=== PATIENT | male | born 1950 | race Two or more races ===

== ENCOUNTER 2024-08-17 14:21 | Emergency (ER) | payer OTHER ==
[~2024-08-17] VITALS: Ht 180.3 cm; Wt 107.9 kg
--- NOTE | 2024-08-17 16:30 | ED.PDOC ---
Back pain HPI HPI Comments 74-year-old male presents with a chief complaint of back pain x 3 days with associated rash. Patient states that he is having back pain to his lower lumbar region for the past 3 days. Patient mentions that he went to urgent care to be seen for it and was prescribed Ibuprofen and Flexeril. Patient reports that the medication helped him but only for about 6 hours then the pain returned. Patient states that he has not been able to sleep. Patient denies any injuries, falls, or heavy lifting recently. Patient also states that he developed a rash over his body. Patient states that the rash is not itchy or painful. Patient was prescribed a steroid cream by urgent care which he states has not helped. Chief Complaint: Back Pain Time Seen by MD: 16:20 Primary Care Provider: ALTA Reviewed Notes: Nurses Notes, Medications, Allergies Allergies: Coded Allergies: NO KNOWN ALLERGIES (Unverified , 08/17/24) Information Source: Patient Mode of Arrival: Ambulatory Timing: Days Duration: Since onset Location of Back pain: (B) Lumbar Severity: Moderate Prehospital treatment: None Quality: Aching Onset: Spontaneous History of: None Past Medical History PAST MEDICAL HISTORY: Denies Surgical History: Denies all surgeries Family History Family History: Reviewed,noncontributory to illness Social History Smoker: Non-Smoker Alcohol: Denies ETOH Use Drugs: Denies Drug Use Lives In: Home Constitutional: denies: chills, diaphoresis, fatigue, fever, malaise, sweats, weakness, others EENTM: denies: blurred vision, double vision, ear bleeding, ear discharge, ear drainage, ear pain, ear ringing, eye pain, eye redness, hearing loss, mouth pain, mouth swelling, nasal discharge, nose bleeding, nose congestion, nose pain, photophobia, tearing, throat pain, throat swelling, voice changes, others Respiratory: denies: cough, hemoptysis, orthopnea, SOB at rest, shortness of breath, SOB with excertion, stridor, wheezing, others Cardiovascular: denies: chest pain, dizzy spells, diaphoresis, Dyspnea on exertion, edema, irregular heart beat, left arm pain, lightheadedness, palpitations, PND, syncope, others Gastrointestinal: denies: abdomen distended, abdominal pain, blood streaked bowels, constipated, diarrhea, dysphagia, difficulty swallowing, hematemesis, melena, nausea, poor appetite, poor fluid intake, rectal bleeding, rectal pain, vomiting, others Genitourinary: denies: burning, dysuria, flank pain, frequency, hematuria, incontinence, penile discharge, penile sore, pain, testicle pain, testicle swelling, urgency, others Neurological: denies: dizziness, fainting, headache, left sided numbness, left sided weakness, numbness, paresthesia, pre-existing deficit, right sided numbness, right sided weakness, seizure, speech problems, tingling, tremors, weakness, others Musculoskeletal: reports: back pain; denies: gout, joint pain, joint swelling, muscle pain, muscle stiffness, neck pain, others Integumetry: reports: rash; denies: bruises, change in color, change in hair/nails, dryness, laceration, lesions, lumps, wounds, others Allergic/Immunocompromised: denies: Difficulty Healing, Frequent Infections, Hi ves, Itching, others Hematologic/Lymphatic: denies: anemia, blood clots, easy bleeding, easy bruising, swollen glands, others Endocrine: denies: excessive hunger, excessive sweating, excessive thirst, excessive urination, flushing, intolerance to cold, intolerance to heat, unexplained weight gain, unexplained weight loss, others Psychiatric: denies: anxiety, bipolar disorder, depression, hopeless, panic disorder, schizophrenia, sleepless, suicidal, others All Other Systems: Reviewed and Negative Physical Exam General Appearance: No Apparent Distress, Normal HEENT: Normal ENT Inspection, Pharynx Normal, TMs Normal Neck: Full Range of Motion, Non-Tender, Normal, Normal Inspection Respiratory: Chest Non-Tender, Lungs Clear, No Accessory Muscle Use, No Respiratory Distress, Normal Breath Sounds Cardiovascular: No Edema, No JVD, No Murmur, No Gallop, Normal Peripheral Pulses, Regular Rate/Rhythm Breast Exam: Deferred Gastrointestinal: No Organomegaly, Non Tender, No Pulsatile Mass, Normal Bowel Sounds, Soft Genitalia: Deferred Pelvic: Deferred Rectal: Deferred Extremities: No calf tenderness, Normal capillary refill, Normal inspection, Normal range of motion, No pedal edema, Tender (TENDERNESS TO LUMBAR SPINE) Musculoskeletal : Apperance: Normal Neurologic: Alert, binder caser II-XII nml as Tested, No Motor Deficits, Normal Affect, Normal Mood, No Sensory Deficits Cerebellar Function: Normal Reflexes: Normal Skin: Dry, Normal Color, Warm, Other (PAPILLAR RASH, NONVESICULAR) Lymphatic: No Adenopathy Was a procedure done? Was a procedure done?: No Back Pain Differential Dx Differential Diagnosis: Appendicitis, Bowel Obstruction, Cholelithiasis, Fracture, Musculoskeletal Pain X-Ray, Labs, Meds, VS Vital Signs Date Time Temp Pulse Resp B/P (MAP) Pulse Ox O2 Delivery O2 Flow Rate FiO2 08/17/24 14:40 97.4 68 16 131/73 (92) 97 08/17/24 14:33 67 Lab Test 08/17/24 18:23 08/17/24 16:20 Range/Units White Blood Count 5.4 4.4-10.8 10^3/uL Red Blood Count 4.45 L 4.5-5.90 10^6/uL Hemoglobin 14.6 13.5-17.5 g/dL Hematocrit 41.6 41.0-53.0 % Mean Corpuscular Volume 93.6 80.0-100.0 fL Mean Corpuscular Hemoglobin 32.8 H 28.0-32.0 pg Mean Corpuscular Hemoglobin Concent 35.1 32.0-36.0 g/dL Red Cell Distribution Width 13.6 11.8-14.3 % Platelet Count 128 L 140-450 10^3/uL Mean Platelet Volume 7.2 6.9-10.8 fL Neutrophils (%) (Auto) 59.9 37.0-80.0 % Lymphocytes (%) (Auto) 26.7 10.0-50.0 % Monocytes (%) (Auto) 11.4 0.0-12.0 % Eosinophils (%) (Auto) 1.5 0.0-7.0 % Basophils (%) (Auto) 0.5 0.0-2.0 % Neutrophils # (Auto) 3.2 1.6-8.6 10 ^3/uL Lymphocytes # (Auto) 1.4 0.4-5.4 10 ^3/uL Monocytes # (Auto) 0.6 0-1.3 10 ^3/uL Eosinophils # (Auto) 0.1 0-0.8 10 ^3/uL Basophils # (Auto) 0 0-0.2 10 ^3/uL Nucleated Red Blood Cells 0.2 % Sodium Level 136 136-145 mmol/L Potassium Level 3.6 3.5-5.1 mmol/L Chloride Level 101 98-107 mmol/L Carbon Dioxide Level 25 20-31 mmol/L Anion Gap 10 5-15 Blood Urea Nitrogen 12 9-23 mg/dL Creatinine 0.97 0.700-1.30 mg/dL Glomerular Filtration Rate Calc 82 >90 mL/min BUN/Creatinine Ratio 12.4 10.0-20.0 Serum Glucose 109 H 74-106 mg/dL Calcium Level 9.6 8.7-10.4 mg/dL Total Bilirubin 0.6 0.2-1.0 mg/dL Aspartate Amino Transferase (AST) 96 H 13-40 U/L Alanine Aminotransferase (ALT) 110 H 7-40 U/L Alkaline Phosphatase 75 46-116 U/L Total Protein 7.7 5.7-8.2 g/dL Albumin 4.6 3.2-4.8 g/dL Urine Color Yellow Yellow Urine Clarity Clear Clear Urine pH 5.5 5.0-9.0 Urine Specific [place] 1.023 1.001-1.035 Urine Protein Trace H Negative Urine Ketones Negative Negative Urine Blood 2+ H Negative /uL Urine Nitrite Negative Negative Urine Bilirubin Negative Negative Urine Urobilinogen Normal Negative mg/dL Urine Leukocyte Esterase Negative Negative /uL Urine RBC 1 0 - 3 /hpf Urine Microscopic WBC 1 0-3 /HPF Urine Squamous Epithelial Cells Few <5 /hpf Urine Bacteria None seen None Seen /hpf Urine Mucus Few None Seen Urine Glucose Normal Normal mg/dL X-Ray, Labs, Meds, VS Comment IMAGING: X-RAYS AND CT SCANS WERE REVIEWED AND INTERPRETED BY THIS PROVIDER, ADMITS SHOWS POSSIBLE ACUTE VERSUS CHRONIC APPENDICITIS. LAB RESULTS SHOW NO WHITE COUNT PATIENT HAS NOT NO REBOUND TENDERNESS LESS CONCERNED FOR ACUTE APPENDICITIS VERSUS CHRONIC.. PENDING RADIOLOGY REVIEW. LABORATORY: LABS REVIEWED AND INTERPRETED BY THIS PROVIDER. NO SIGNIFICANT ABNORMALITIES NOTED. PATIENT HAS PRIOR MEDICAL VISITS REVIEWED. MED RECONCILIATION PERFORMED VITAL SIGNS REVIEWED Time of 1ST Reevaluation: 16:50 Reevaluation 1ST: Unchanged Patient Education/Counseling: Diagnosis, Treatment, Prognosis, Need For Follow Up (PATIENT ADVISED TO FOLLOW-UP IN THE EMERGENCY ROOM IN THE NEXT 24 TO 48 HOURS IF SYMPTOMS DO NOT IMPROVE. ADVISED FOLLOW-UP WITH PCP IN THE NEXT 3 TO 5 DAYS. PATIENT VERBALIZED UNDERSTANDING. ) Family Education/Counseling: Diagnosis, Treatment, Prognosis Departure 1 Departure Time of Disposition: 19:18 Impression: Primary Impression: Lumbar radiculopathy Additional Impression: Musculoskeletal pain Disposition: 01 HOME / SELF CARE / HOMELESS Condition: Stable e-Prescriptions Methylprednisolone (Medrol Dosepak) 4 Mg Bennie 4 MG PO UD, #21 TAB UAD Prov: CURT HOLDER 08/17/24 Discharged With: Self Critical Care Note Critical Care Time?: No Stability Stability form required: No Heart Score Heart Score: Heart Score Response (Comments) Value History N/A 0 EKG N/A 0 Age N/A 0 Risk Factors N/A 0 Troponin N/A 0 Total 0 I personally scribed for CURT HOLDER ([email or web address]) on 08/17/24 at 16:30. Electronically submitted by Feliz Romano ([email or web address]). CURT HOLDER Aug 17, 2024 16:30
[2024-08-17 17:02] LABS: Urine Bacteria None Seen /hpf (None Seen)
[2024-08-17 17:22] LABS: Urine Blood 2+ /uL (Negative); Urine Clarity Clear (Clear); Urine Color Yellow (Yellow); Urine Mucus FEW (None Seen); Urine Protein, UAD TRACE (Negative); Urine Specific Gravity 1.023 (1.001-1.035); Urine Squamous Epithelial Cell FEW /hpf (<5); Urine Urobilinogen Normal (Negative); Urine WBC 1 /HPF (0-3); Urine pH 5.5 (5.0-9.0)
--- NOTE | 2024-08-17 17:36 | DVH ---
Procedure: CT CT AB PEL WO CON-NO ORAL OR IV 08/17/2024 04:37 PM Indication: BACK PAIN Comparison Study: None Technique: Axial images were obtained and reformatted in coronal and sagittal planes. All CT scans at this medical facility are performed using dose modulation techniques as appropriate to a performed e xam including the following: Automated exposure control was utilized; adjustment of the MA and/or KV according to patient size; and use of iterative reconstruction technique. CT Dose: CTDI volume is 24. 79 mGy. Dose-length product is 1503.52 mGy*cm FINDINGS: Lower Chest: Unremarkable. Hepatobiliary: Unremarkable. Spleen: Mildly enlarged, 13 cm in length. Pancreas: Unremarkable. Adrenal Glands: Unremarkable. tract: The kidneys are normal in size bilaterally without hydronephrosis or nephrolithiasis. The u rinary bladder is unremarkable. GI tract: The stomach is grossly normal in appearance. No evidence of small bowel obstruction. Scatte red colonic diverticula are noted without evidence of diverticulitis. The appendix is distended measu ring 1.1 cm in caliber without significant mural thickening and no appendicolith. No significant per iappendiceal inflammation. Lymphatics: No mesenteric, retroperitoneal or periportal lymphadenopathy. Vasculature: The abdominal aorta is normal in in caliber. Pelvic Organs: Markedly enlarged prostate, 5.7 cm in transverse with several subcentimeter central zo ne calcifications Bones/soft tissues: No acute abnormality noted. Multilevel degenerative disc disease and posterior fa cet arthropathy of the lumbar spine with evidence of central canal and neural foramina stenosis at L2 -S1 levels which is most prominent at L3-L4 and L4-L5 levels with suggestion of nerve impingement. S mall fat containing umbilical hernia. Fat filled bilateral inguinal canals. There is partial fusion o f the bilateral sacroiliac joints. Other: None. IMPRESSION: 1. Distended appendix measuring 1.1 cm in caliber without periappendiceal inflammation. Chronic appe ndicitis or developing acute appendicitis can not be ruled out. Recommend clinical and biochemical co rrelation. No prior studies available for comparison. 2. Advanced multilevel degenerative disc disease and posterior facet arthropathy of the lumbar spine with evidence of nerve impingement at L3-S1 levels. Further evaluation with MRI could be completed on a nonemergent basis. 3. Partial fusion of the bilateral sacroiliac joints may reflect an element of seronegative spondyloa rthropathy. Recommend clinical and biochemical correlation. 4. Severe prostatic hyperplasia. 5. Mild splenomegaly.
[2024-08-17 18:48] LABS: Basophils # (auto) 0 10 ^3/uL (0-0.2); Basophils % (auto) 0.5 % (0.0-2.0); Eosinophils # (auto) 0.1 10 ^3/uL (0-0.8); Eosinophils % (auto) 1.5 % (0.0-7.0); Hematocrit 41.6 % (41.0-53.0); Hemoglobin 14.6 g/dL (13.5-17.5); Lymphocytes # (auto) 1.4 10 ^3/uL (0.4-5.4); Lymphocytes % (auto) 26.7 % (10.0-50.0); Mean Corpuscular Hemoglobin 32.8 pg (28.0-32.0); Mean Corpuscular Hgb Conc. 35.1 g/dL (32.0-36.0); Mean Corpuscular Volume 93.6 fL (80.0-100.0); Monocytes # (auto) 0.6 10 ^3/uL (0-1.3); Monocytes % (auto) 11.4 % (0.0-12.0); Neutrophils # (auto) 3.2 10 ^3/uL (1.6-8.6); Neutrophils % (auto) 59.9 % (37.0-80.0); Nucleated Red Blood Cells % 0.2 %; Platelet Count (auto) 128 10^3/uL (140-450); Red Blood Cells 4.45 10^6/uL (4.5-5.90); Red Cell Distribution Width 13.6 % (11.8-14.3); White Blood Cell 5.4 10^3/uL (4.4-10.8)
[2024-08-17 19:09] LABS: Alkaline Phosphatase 75 U/L (46-116); Calcium 9.6 mg/dL (8.7-10.4); Carbon Dioxide 25 mmol/L (20-31); Chloride 101 mmol/L (98-107)
[2024-08-17 19:10] LABS: Albumin 4.6 g/dL (3.2-4.8); Anion Gap 10 (5-15); BUN/Creatinine Ratio 12.4 (10.0-20.0); Bilirubin, Total 0.6 mg/dL (0.2-1.0); Blood Urea Nitrogen 12 mg/dL (9-23); Potassium 3.6 mmol/L (3.5-5.1); Total Protein 7.7 g/dL (5.7-8.2)
[2024-08-17 19:13] LABS: Alanine Aminotransferase 110 U/L (7-40); Aspartate Aminotransferase 96 U/L (13-40); Glucose 109 mg/dL (74-106); Sodium 136 mmol/L (136-145)
[2024-08-17] MEDS ORDERED: METH4PAK PO (19:18)
[2024-08-17 19:33] VITALS: BP 156/90; PULSE 61; RESP 16; TEMP 97.7; O2SAT 94
[2024-08-17] MEDS: methylPREDNISolone SOD SUCC 125 MG/2 ML VL IM ONE (19:43)
[2024-08-17] MEDS: KETOROLAC TROMETH 30 MG/ML 1ML VIAL IM ONE (19:43)
--- NOTE | 2024-08-18 08:53 | ECG ---
[facility] Test Date: 2024-08-17 Test Time: 14:33:51 Pat Name: BOY LANGLEY Department: ER Room: Gender: M [employer]: IC : [id number] Requested By: SOILA BENDER Order Number: [id number] Reading MD: Keanu Maldonado Measurements Intervals [place] Rate: 67 P: 16 MT: 144 QRS: 263 QRSD: 93 T: 121 QT: 513 QTc: 542 Interpretive Statements Sinus rhythm Left anterior fascicular block RSR' in V1 or V2, right VCD or RVH Borderline abnrm T, anterolateral leads Prolonged QT interval Baseline wander in lead(s) I,II,aVR,aVF,V1,V2 Electronically Signed On 08-20-2024 18:59:02 PDT by Keanu Maldonado Please click the below link to view image of tracing.
== END 2024-08-17 19:51 | disposition home or self-care (01) ==
LOC: ER 14:21
DX: M51.16 Intervertebral disc disorders with radiculopathy, lumbar region (principal); M79.18 Myalgia, other site; L53.8 Other specified erythematous conditions; Z79.899 Other long term (current) drug therapy
CPT/HCPCS: 36415; 74176; 80053; 81001; 85025; 93005; 96372; 99285; J1885; J2919

== ENCOUNTER 2025-05-30 08:29 | Outpatient (CLI) | payer OTHER ==
[~2025-05-30 08:29] MED LIST: METH4PAK PO
[2025-05-30 09:05] LABS: Urine Protein, UAD Negative (Negative)
[2025-05-30 09:06] LABS: Hematocrit 44.9 % (41.0-53.0); Hemoglobin 15.2 g/dL (13.5-17.5); Mean Corpuscular Hemoglobin 31.8 pg (28.0-32.0); Mean Corpuscular Volume 93.9 fL (80.0-100.0); Nucleated Red Blood Cells % 0.1 %
[2025-05-30 09:41] LABS: Alanine Aminotransferase 12 U/L (7-40); Albumin 4.5 g/dL (3.2-4.8); Alkaline Phosphatase 66 U/L (46-116); Anion Gap 7 (5-15); BUN/Creatinine Ratio 10.0 (10.0-20.0); Blood Urea Nitrogen 10 mg/dL (9-23); Calcium 9.6 mg/dL (8.7-10.4); Carbon Dioxide 29 mmol/L (20-31); Chloride 106 mmol/L (98-107); Cholesterol 169 mg/dL (< 200); Glucose 106 mg/dL (74-106); HDL Cholesterol 58 mg/dL (40-59); Potassium 4.0 mmol/L (3.5-5.1); Sodium 142 mmol/L (136-145); Total Protein 7.7 g/dL (5.7-8.2); Triglycerides 98 mg/dL (< 150)
[2025-05-30 09:42] LABS: Bilirubin, Total 0.8 mg/dL (0.2-1.0)
[2025-05-30 10:12] LABS: Free T4 (Free Thyroxine) 1.04 ng/dL (0.89-1.76)
[2025-05-30 10:13] LABS: Prostate Specific Antigen 4.3 ng/mL (0.0-4.0)
[2025-05-30 10:24] LABS: Uric Acid 4.5 mg/dL (3.7-9.2)
[2025-05-31 08:07] LABS: Prostate Specific Antigen 4.6 ng/mL (0.0-4.0)
== END 2025-05-30 17:00 | disposition home or self-care (01) ==
LOC: LAB 08:29
PROVIDERS: ATTEND Student in an Organized Health Care Education/Training Program
DX: N40.0 Benign prostatic hyperplasia without lower urinary tract symptoms (principal); E55.9 Vitamin D deficiency, unspecified; E03.8 Other specified hypothyroidism; R73.9 Hyperglycemia, unspecified; R03.0 Elevated blood-pressure reading, without diagnosis of hypertension
CPT/HCPCS: 36415; 80053; 80061; 81001; 82306; 83036; 84153; 84154; 84439; 84443; 84550; 85025; 86038; 86431